=== PATIENT | female | born 1955 | race Caucasian/White ===

== ENCOUNTER 2020-03-30 07:09 | Outpatient (REF) | payer OTHER, SELFPAY ==
[2020-03-30 12:05] LABS: Cholesterol 228 mg/dL; HDL Cholesterol 55 mg/dL; LDL Cholesterol Calculated 139 mg/dl; Triglycerides 174 mg/dL
== END 2020-03-30 07:10 | disposition home or self-care (01) ==
LOC: HO.HMGCLDS 07:09
PROVIDERS: PCP Internal Medicine; Visit Provider Internal Medicine
DX: I10 Essential (primary) hypertension (principal); E78.5 Hyperlipidemia, unspecified
CPT/HCPCS: 80061

== ENCOUNTER 2020-05-24 15:31 | Outpatient (REF) | payer OTHER, SELFPAY | END 2020-05-24 15:32 | disposition home or self-care (01) | LOC: HO.LAB 15:31 | PROVIDERS: Visit Provider Nurse Practitioner Family | DX: Z20.828 Contact with and (suspected) exposure to other viral communicable diseases (principal); J02.9 Acute pharyngitis, unspecified | CPT/HCPCS: 87071; 87880; U0003 ==

== ENCOUNTER 2021-05-17 06:40 | Outpatient (REF) | payer OTHER, SELFPAY ==
[2021-05-17 11:46] LABS: Alanine Aminotransferase 19 U/L (0-31); Albumin Level 4.2 g/dL (3.5-5.0); Alkaline Phosphatase 99 U/L (39-117); Anion Gap 11 (12-20); Aspartate Amino Transferase 14 U/L (5-31); Bilirubin Total 0.8 mg/dL (0.0-1.0); Blood Urea Nitrogen 13 mg/dL (9-16); Calcium 9.9 mg/dL (8.4-10.2); Carbon Dioxide 27 mmol/L (22-29); Chloride 107 mmol/L (96-108); Cholesterol 212 mg/dL; Estimated Glomerular Filt Rate > 60; Gamma Glutamyl Transpeptidase 31 U/L (7-33); Glucose Fasting 104 mg/dL (60-99); HDL Cholesterol 45 mg/dL; LDL Cholesterol Calculated 130 mg/dl; Potassium 4.1 mmol/L (3.3-5.1); Sodium 141 mmol/L (135-145); Triglycerides 185 mg/dL
[2021-05-17 12:08] LABS: TSH reflex Free T4 1.52 uIU/mL (0.32-4.0); Vitamin D 25-OH Total 55.6 ng/mL (>30); Vitamin D 25-OH Total 60.1 ng/mL (>30)
[2021-05-17 12:25] LABS: Folate 19.5 ng/mL (> or = 4.0); Vitamin B12 658 pg/mL (200-900)
[2021-05-20 15:12] LABS: Transglutaminase IgA <1.0 U/mL
[2021-05-21 16:42] LABS: Mitochondrial Antibodies NEGATIVE (NEGATIVE)
[2021-05-23 10:12] LABS: Methylmalonic Acid 174 nmol/L (87-318)
== END 2021-05-17 06:41 | disposition home or self-care (01) ==
LOC: HO.HMGCLDS 06:40
PROVIDERS: Absent Provider Internal Medicine Gastroenterology; PCP Internal Medicine; Visit Provider Internal Medicine
DX: K90.0 Celiac disease (principal); E78.2 Mixed hyperlipidemia; I10 Essential (primary) hypertension
CPT/HCPCS: 36415; 80053; 80061; 82306; 82607; 82746; 82977; 83516; 83921; 84443; 86255; 86256

== ENCOUNTER 2021-06-14 11:00 | Outpatient (RCR) | payer OTHER, SELFPAY ==
[2021-06-07 10:49] VITALS: BP 138/82; PULSE 81; O2SAT 95
--- NOTE | 2021-06-07 13:32 | MHC.PT.EP ---
[facility] [place] [facility] [place] [facility] [place] [facility] [address] [place] [address] [address] Olvera [address] [phone] F: [phone] F: [phone] F: [phone] F: [phone] Physical Therapy Plan of Care Date of Evaluation: Date of Surgery: Diagnosis: This is a 66 yo female presenting to skilled PT with a script for vertigo. Assessment: This is a 66 yo female presenting to skilled PT with a script for vertigo. Patient's symptoms began around the middle of April. She went to urgent care and then was referred to [facility]. At the ER she had a CT scan without abnormalities noted, lab work and EKG which were also normal. She was prescribed meclizine which was helpful. Her symptoms have been improving since April. She describes her symptoms as lightheadedness and unsteady. She had vertigo many years ago but did not have PT. No LOB or falls reported. Examination shows normal oculomotor tests except for ? horizontal saccades, (-) VBI B, and decreased cervical AROM. She was (-) for BPPV with rylee-hallpike and roll tests. She demos normal balance scores but had mild symptoms with head turns and walking during DGI (has a past history of TKR and LLD as well). 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 She was sent home with VOR exercises to assess response and education on follow up with MD. I will reassess canals once more next week as well as benefits of HEP. May benefit from PT to address impairments, implement HEP and optimize functional. Frequency and Duration: The patient will be seen 2x/wk for 4wks Short Term Goals: [facility] Goals: I in HEP No nystagmus or symptoms in any testing positions No LOB noted and normal scores on balance tests Return to work in full Treatment Plan: Modalities to reduce pain, spasms and effusion. Manual therapy to restore motion and function. Therapeutic exercise to improve strength and flexibility. Neuromuscular re-education for posture and balance. Therapeutic activities to return to functional activities of daily living. Electronically signed by: Ely Hernandez PT Please sign and return to therapist. Thank you for your referral.
--- NOTE | 2021-07-16 07:58 | MHC.PT.DC ---
[facility] [place] [facility] [place] [facility] [place] [facility] [address] Curt Olvera [address] [phone] F: [phone] F: [phone] F: [phone] F: [phone] Physical Therapy Discharge Report Diagnosis: This is a 66 yo female presenting to skilled PT with a script for vertigo. Date of Surgery: Date of Evaluation: 06/07/21 Date of Discharge: 07/16/21 Treatments to Date: 2 Cancellations to Date: 0 No Shows to Date: 0 Discharge Status: Achieved Goals Improved Function Independent with HEP Discharge Summary: Patient with improvements since initial eval. She has noticed a difference with the exercises, she was educated on symptoms and symptom management with HEP/follow up with MD as needed. Educated her to call the office if symptoms return or become worse once more. I updated her HEP, kept her chart open for 30 days and then DC'd chart. I educated her on this process. Electronically signed by: Ely Hernandez PT Please sign and return to therapist. Thank you for your referral.
== END 2021-07-16 07:56 | disposition home or self-care (01) ==
LOC: HO.PTCHIC 11:00
PROVIDERS: PCP Internal Medicine; Visit Provider Internal Medicine
DX: R42 Dizziness and giddiness (principal)
CPT/HCPCS: 97112; 97162

== ENCOUNTER 2022-05-20 11:17 | Outpatient (REF) | payer MEDICARE, OTHER, SELFPAY ==
[2022-05-20 12:41] LABS: Influenza A PCR POSITIVE (Negative); Influenza B PCR NEGATIVE (Negative); Resp Syncy Virus RNA Qual PCR NEGATIVE (Negative); SARS COV2 PCR INHOUSE NEGATIVE (Negative)
== END 2022-05-20 11:18 | disposition home or self-care (01) ==
LOC: HO.LNP 11:17
PROVIDERS: Visit Provider Nurse Practitioner Family
DX: Z20.822 Contact with and (suspected) exposure to COVID-19 (principal); R09.89 Other specified symptoms and signs involving the circulatory and respiratory systems
CPT/HCPCS: 0241U